=== PATIENT | female | born 1985 | race Caucasian/White ===

== ENCOUNTER 2024-08-14 08:32 | Emergency (ER) | payer BC, SELFPAY ==
--- NOTE | ~2024-08-14 | XR_ITS ---
XR ankle LT min 3V Ordering provider: Chani Borrego NP History: . Lt ankle pain from injury . Comparison: None. FINDINGS: BONES: No acute fracture or dislocation. JOINT SPACES: The ankle mortise is normal. SOFT TISSUES: Ossification of the insertion of the tendo Achilles. IMPRESSION: No acute osseous abnormality left ankle. Reviewed, dictated and finalized at location A.
--- NOTE | ~2024-08-14 | XR_ITS ---
XR foot LT min 3V Ordering provider: Chani Borrego NP History: . slipped and twisted Lt foot . Comparison: None. FINDINGS: BONES: No acute fracture or dislocation. JOINT SPACES: Normal. No tarsal coalition. SOFT TISSUES: Normal. IMPRESSION: No acute osseous abnormality left foot. Reviewed, dictated and finalized at location A.
[2024-08-14 08:47] VITALS: BP 122/72; PULSE 82; RESP 16; TEMP 36.1; O2SAT 100
--- NOTE | 2024-08-14 08:57 | ED_ITS ---
HPI - Extremity Injury (Lower) General Chief Complaint: Extremity Injury, Lower Stated Complaint: Injured Left Foot Time Seen by Provider: 08/14/24 08:57 Source: patient, RN notes reviewed and old records reviewed Mode of arrival: ambulatory (on crutches) Limitations: no limitations History of Present Illness HPI Narrative: 38 year old female who presents to [facility] care with complaints of injury to her left foot and medial ankle area after injury at exercise class last evening. Patient reports that he slipped on her right foot and then her left foot twisted and it went underneath her when she fell. Patient reports that it happened so fast that she was not able to catch herself in any way to break her fall. Patient reports that she has pain to the anterior aspect of foot, medial aspect of her foot and ankle and from great toe back with some pain to the arch of her left foot also. Patient has been icing, elevated and has been taking Ibuprofen. She arrived using her daughters crutches. MD complaint: ankle injury (medial) and foot injury (left,) Onset (ago): day(s) (last evening) Injury: Left: ankle (medial) and foot Severity: moderate Severity scale (1-10): 6 Treatments prior to arrival: cold therapy and other (Ibuprofen and elevation) Related Data Allergies Allergy/AdvReac Type Severity Reaction Status Date / Time latex Allergy Unknown Itching Verified 08/14/24 08:46 Penicillins Allergy Unknown Anaphylactic Verified 08/14/24 08:46 Shock Review of Systems Review of Systems: CONSTITUTIONAL: Denies fever, chills, or sweats. EYES: Denies visual changes, redness, or discharge. ENT: Denies rhinorrhea, congestion, sore throat, or otalgia. CARDIOVASCULAR: Denies chest pain, palpitations, or edema. RESPIRATORY: Denies cough or dyspnea. GASTROINTESTINAL: Denies abdominal pain, nausea, vomiting, or diarrhea. GENITOURINARY: Denies dysuria or hematuria. SKIN: Denies rash or itching. MUSCULOSKELETAL: Denies back pain,positive for left foot and ankle pain, mild swelling, CMS intact, or myalgia. NEUROLOGIC: Denies headache, numbness, or weakness. PSYCHIATRIC: Reports history anxiety or depression. All systems reviewed & are unremarkable except as noted in HPI and below PMFSH Past Medical History Medical History Screening mammogram for breast cancer UTI (urinary tract infection) Tension headache, chronic BMI 38.0-38.9,adult Chronic neck pain (~2017) with left cervical radiculitis to the thumb Chronic pain in left shoulder (~2021) Impacted cerumen of both ears BMI 35.0-35.9,adult Obesity (BMI 30-39.9) BMI 37.0-37.9, adult BMI 36.0-36.9,adult Wellness examination Insomnia BMI 39.0-39.9,adult Fever blister COVID-19 (02/05/20) Acute bronchitis (~04/23/21) possible COVID around 04/11/2021 never tested Exposure to COVID-19 virus Hypersomnia Essential (primary) hypertension Mixed hyperlipidemia Total cholesterol 241, triglycerides 162, HDL 38 and LDL 172 on 04/08/2020. Chronic anxiety Body mass index (BMI) 40.0-44.9, adult Family History Family History Grandparent Family history of congestive heart failure, Onset Age: 80 Social History Social History Smoking status: Never smoker Alcohol intake: current Drinks per week: 4 Substance use: never Substance use type: does not use Lack of Transportation: No Lack of Food: Never True Current Housing: I Have Housing Concerned About Future Housing: No Difficulty Paying Gas/Electric Bills: No Difficulty Paying for Meds: No Currently Unemployed: No Education: High School Diploma/GED Difficulty w/ Childcare or Family Care: No Comments At time of signature, agree with nursing past medical, surgical, social and family history. There is no relevant family history pertinent to the presenting complaint Exam Narrative: GENERAL: Well-appearing, well-nourished, and in no acute distress. HEAD: Normocephalic, atraumatic. EYES: PERRLA and EOMI. ENT: Nares clear, no rhinorrhea or epistaxis. Mucous membranes moist.TM's with good light reflex, throat pink with no swelling NECK: Supple. no lymphadenopathy CHEST: Clear to auscultation. No respiratory distress SAO2 100% on room air. HEART: Regular rate and rhythm. No murmur heard. Normal peripheral pulses. ABDOMEN: Soft, nontender, nondistended, normal active bowel sounds. EXTREMITIES: Normal range of motion. No edema.Exception noted of pain of left foot anterior and medial aspect and to arch of foot from fall last night, mild swelling of foot noted. circulation sensation and mobility intact to foot. Weight bearing increases pain and movement of foot, strong pedal pulse to left foot. SKIN: Warm, dry, no rash. NEURO: No focal deficits. Alert and oriented x3. Course Course Emergency Course: Patient is aware of diagnosis, understands and agrees to treatment plan.? Anticipatory guidance given.? Patient agrees to follow-up as directed and is aware of reasons to seek care at the emergency department. Portions of this record may have been created with voice recognition software Level of Care: Express Care Visit Vital Signs Vital signs: Vital Signs Temperature 36.1 C L 08/14/24 08:47 Pulse Rate 82 08/14/24 08:47 Respiratory Rate 16 08/14/24 08:47 Blood Pressure 122/72 08/14/24 08:47 Pulse Oximetry 100 08/14/24 08:47 Temperature 36.1 C L 08/14/24 08:47 Pulse Rate 82 08/14/24 08:47 Respiratory Rate 16 08/14/24 08:47 Blood Pressure 122/72 08/14/24 08:47 Pulse Oximetry 100 08/14/24 08:47 Reviewed MDM - Extremity Injury (Lower) Differential Diagnosis Differential diagnosis: Likely ankle sprain and strain and other (acute sprain/strain of left foot, contusion of left foot, pain left foot) Medical Records Attestation: I reviewed the patient's medical records. Imaging Data Attestation: I personally reviewed and interpreted this imaging study as follows: My impression: no fracture to left ankle or left foot Radiologist's impression: [facility] [facility] [place] [address] XRay Report Signed Patient: Karley Luz : 1985 MR#: [id number] Age: 38 Acct:[id number] Loc: [facility] ADM Date: 08/14/24Attending Dr: Ordering Physician: Chani Borrego APRN Date of Service: 08/14/24 Procedure(s): XR ankle LT min 3V Accession Number(s): [id number] cc: [employer] INVESTIGATOR PHYSICIAN; Chani Borrego APRN~ XR ankle LT min 3V Ordering provider: Chani Borrego NP History: . Lt ankle pain from injury . Comparison: None. FINDINGS: BONES: No acute fracture or dislocation. JOINT SPACES: The ankle mortise is normal. SOFT TISSUES: Ossification of the insertion of the tendo Achilles. IMPRESSION: No acute osseous abnormality left ankle. Reviewed, dictated and finalized at location A. Please be advised this is a medical document. It is intended for [id number] c ommunication. It is written in medical language and may contain unfamiliar abbreviations or verbiage. Medical documents are intended to carry relevant information, facts as evident, and the clinical opinion of the practitioner at the time of the encounter. This report may have been done utilizing a voice recognition system. Attempts have been made to correct errors. However, there may be uncorrected grammatical, spelling, and recognition errors present. The file time of this note does not necessarily represent the time of service. Dictated By: Delmer Hinojosa MD 08/14/24 0914 Signed By: <Electronically signed by Delmer Hinojosa MD in [place]> [address] [address] XRay Report Signed Patient: Karley Luz : 1985 MR#: [id number] Age: 38 Acct:[id number] Loc: [facility] ADM Date: 08/14/24Attending Dr: Ordering Physician: Chani Borrego APRN Date of Service: 08/14/24 Procedure(s): XR foot LT min 3V Accession Number(s): [id number] cc: A[employer] INVESTIGATOR PHYSICIAN; Salima, Chani L. RESUME WRITER~ XR foot LT min 3V Ordering provider: Chani Borrego NP History: . slipped and twisted Lt foot . Comparison: None. FINDINGS: BONES: No acute fracture or dislocation. JOINT SPACES: Normal. No tarsal coalition. SOFT TISSUES: Normal. IMPRESSION: No acute osseous abnormality left foot. Reviewed, dictated and finalized at location A. Please be advised this is a medical document. It is intended for [id number] communication. It is written in medical language and may contain unfamiliar abb reviations or verbiage. Medical documents are intended to carry relevant information, facts as evident, and the clinical opinion of the practitioner at the time of the encounter. This report may have been done utilizing a voice recognition system. Attempts have been made to correct errors. However, there may be uncorrected grammatical, spelling, and recognition errors present. The file time of this note does not necessarily represent the time of service. Dictated By: Delmer Hinojosa MD 08/14/24 0915 Signed By: <Electronically signed by Delmer Hinojosa MD in [place]> Critical Care Time Critical Care Time Critical Care Time: No Discharge Plan Discharge Clinical Impression: Ankle sprain and strain Sprain of foot, left Qualifiers: Encounter type: initial encounter Qualified Code(s): S93.602A - Unspecified sprain of left foot, initial encounter Patient Disposition: Home Condition: Stable Instructions: Ankle Sprain (ED), Foot Sprain (ED) Additional Instructions: Elastic wrap or orthopedic splint as directed for comfort for the next 5-7 days Crutches as directed if needed Tylenol for lesser pain Ibuprofen regularly for the next 2-3 days for the inflammation Follow-up with orthopedic surgeon if no improvement in 5-[address] Preciado is our orthopedic surgeon employee relations assistant [phone] Follow-up with PCP if further problems or concerns Ice to the area 20-30 minutes 4-6 times a day Elevate above heart If your symptoms persist, change or worsen significantly before you can contact your personal physician then please, without delay, go to the emergency department for further evaluation. Follow-up with PCP in 7-10 days or sooner if needed Patient Language: Sami Prescriptions: No Action fluticasone propionate [Flonase Allergy Relief] 50 mcg/actuation spray,suspension 1 - 2 spray intranasal BID Qty: 16 3RF Rx Instructions: administer into each nostril buspirone 10 mg tablet 10 mg PO BID Qty: 60 11RF escitalopram oxalate [Lexapro] 20 mg tablet 20 mg PO DAILY Qty: 30 11RF metoprolol succinate 50 mg tablet extended release 24 hr 50 mg PO DAILY Qty: 30 11RF Follow-up/Referrals: PHYSICIAN,[employer]SON [employer] INVESTIGATOR [Primary Care Provider] - Alcon Preciado MD [Physician] - Time of Disposition: 09:47 Quality [place] Coma Scale Eyes: Open Verbal: Oriented and Alert Motor: Follows Commands Frida Coma Total Score: 15
== END 2024-08-14 09:48 | disposition home or self-care (01) ==
PROVIDERS: Emergency Provider Registered Nurse
DX: S93.402A Sprain of unspecified ligament of left ankle, initial encounter (principal); S96.912A Strain of unspecified muscle and tendon at ankle and foot level, left foot, initial encounter; W01.0XXA Fall on same level from slipping, tripping and stumbling without subsequent striking against object, initial encounter; S93.602A Unspecified sprain of left foot, initial encounter; I10 Essential (primary) hypertension; E78.2 Mixed hyperlipidemia; E66.9 Obesity, unspecified; Z68.36 Body mass index [BMI] 36.0-36.9, adult; Z86.16 Personal history of COVID-19
CPT/HCPCS: 73610; 73630; 99213; G0463